=== PATIENT | male | born 1940 | race Caucasian/White ===

== ENCOUNTER 2016-04-06 05:13 | Emergency (ER) | payer OTHER ==
[~2016-04-06] VITALS: Ht 177.8 cm; Wt 63.0 kg
[~2016-04-06 05:13] MED LIST: ARICEPT10 MG PO; ASPIRIN81 M1 PO; ATIVAN0.5 MG PO; LISINOPRIL40 MG PO; MOMETASONE FURO45 G1 TD; NORVASC10 MG PO; QUETIAPINE FUMA25 MG PO; TYLENOL REGULA325 MG PO; ZEBETA5 MG PO; ZOLOFT25 MG PO
[2016-04-06 05:51] LABS: EOSINOPHIL (%) 0.1 % (0-5); HEMATOCRIT 39.7 % (38.0-50.0); IMMATURE GRANULOCYTE (%) 0.2 % (0.0-0.7); LYMPHOCYTE COUNT 0.8 K/uL (1.0-2.8); MCH 33.1 PG (29.0-34.0); MCHC 34.3 G/DL (30.0-36.0); MCV 96.6 FL (86-99); MONOCYTE (%) 7.5 % (3-12); NEUTROPHIL (%) 86.4 % (45-76); NEUTROPHIL COUNT 11.8 K/uL (1.8-6.4); PLATELET COUNT 192 K/uL (156-360); RBC DIS.WIDTH-CV 13.1 % (11.8-14.6); RBC DIS.WIDTH-SD 45.6 % (39-53); RED BLOOD COUNT 4.11 M/uL (4.00-5.50); WHITE BLOOD COUNT 13.7 K/uL (4.1-10.2)
[2016-04-06 05:56] LABS: CHLORIDE 112 mEq/L (99-109); POTASSIUM 4.6 mEq/L (3.7-5.4); SODIUM 150 mEq/L (136-147)
[2016-04-06 05:58] LABS: GLUCOSE 150 mg/dL (70-99)
[2016-04-06 05:59] LABS: INTER. NORMALIZED RATIO 1.1; PROTHROMBIN TIME 11.2 (9.2-11.2); PTT 24.7 (25-32)
[2016-04-06 06:00] LABS: ANION GAP 8 MEQ/L (2-14); TOTAL BILIRUBIN 0.6 mg/dL (0.0-1.0)
[2016-04-06 06:02] LABS: ALKALINE PHOSPHATASE 79 IU/L (3-129); GFR ESTIMATE (CALCULATED) > 59 mL/min/
[2016-04-06 06:03] LABS: UREA NITROGEN (BUN) 23 mg/dL (9-23)
[2016-04-06 06:06] LABS: LIPASE 24 U/L (1.0-51.0)
[2016-04-06] MEDS ORDERED: PEPCID20 MG PO (06:35)
[2016-04-06 07:39] VITALS: BP 124/89
== END 2016-04-06 07:39 | disposition home or self-care (01) ==
LOC: EME 05:13
PROVIDERS: Emergency Medicine
DX: K92.2 Gastrointestinal hemorrhage, unspecified (principal); E86.0 Dehydration; E87.0 Hyperosmolality and hypernatremia; G30.9 Alzheimer's disease, unspecified; F02.80 Dementia in other diseases classified elsewhere, unspecified severity, without behavioral disturbance, psychotic disturbance, mood disturbance, and anxiety; I10 Essential (primary) hypertension; Z87.891 Personal history of nicotine dependence
CPT/HCPCS: 80053; 83690; 85025; 85610; 85730; 93005; 99281; 99284